=== PATIENT | female | born 1965 | race American Indian/Alaskan Native ===

== ENCOUNTER 2018-02-17 10:22 | Outpatient (CLI) | payer OTHER ==
--- NOTE | 2018-02-17 11:38 | XRay Report ---
Right and left hand: History: Back and hand osteoarthritis. Carpal tunnel. Findings: No bony or articular abnormality. No fracture, periosteal reaction or soft tissue calcification. Impression: Essentially negative right and left hand.
--- NOTE | 2018-02-17 11:39 | XRay Report ---
Lumbar spine 2 views: History: Osteoarthritis. Findings: The Normal height of vertebral bodies and intervertebral disc. Sclerotic articular surfaces with small anterior osteophytes suggestive of the degenerative changes. No fracture. No paravertebral mass. Impression: Early degenerative changes lumbar spine.
== END 2018-02-17 10:23 | disposition home or self-care (01) ==
LOC: XRAY 10:22
PROVIDERS: ATTEND Internal Medicine
DX: M25.78 Osteophyte, vertebrae (principal); M47.816 Spondylosis without myelopathy or radiculopathy, lumbar region; F32.9 Major depressive disorder, single episode, unspecified; F41.9 Anxiety disorder, unspecified; E11.9 Type 2 diabetes mellitus without complications; I10 Essential (primary) hypertension; E66.9 Obesity, unspecified; J44.9 Chronic obstructive pulmonary disease, unspecified
CPT/HCPCS: 72100